=== PATIENT | female | born 1990 | race Two or more races ===

== ENCOUNTER 2020-04-27 08:58 | Emergency (ER) | payer MEDICAID ==
[~2020-04-27] VITALS: Ht 165.1 cm; Wt 68.0 kg
[2020-04-27] MEDS ORDERED: Acetaminophen 500mg (ES) tab ORAL ONE (09:15)
--- NOTE | 2020-04-27 09:15 | Emergency Room Report ---
History of Present Illness General Chief Complaint: Flu Like Symptoms Source: Patient Present Illness HPI Disclaimer: Please note that this report is being documented using [employer] technology. This can lead to erroneous entry secondary to incorrect interpretation by the dictating instrument. HPI: 30-year-old female presents for evaluation of fever, weakness, vomiting. Symptoms present approximately 1 week. She tested positive for COVID-19 on 04/25. She reports 1 week of intermittent fevers, sore throat, abdominal cramping, nausea, vomiting, diarrhea nonproductive cough. Took Tylenol 4 a.m. Denies dysuria, hematuria. LMP 1 month ago. Not currently taking antibiotics. PMH: Denied PSH: Denied Allergies: Denied Social Hx: Denied Allergies: Coded Allergies: No Known Allergies (Unverified , 04/27/20) COVID-19 Screening Contact w/high risk pt: No Experienced COVID-19 symptoms?: Yes COVID-19 Testing performed TEAR DOWN MAN: Yes COVID-19 Screening: Positive COVID-19 COVID-19 Testing Source: LAST WEEK Nursing Documentation-PMH Past Medical History: No Stated History Review of Systems All Other Systems: negative except mentioned in HPI Physical Exam Vital Signs Date Time Temp Pulse Resp B/P (MAP) Pulse Ox O2 Delivery O2 Flow Rate FiO2 04/27/20 09:08 100.2 98 22 127/98 (108) 100 Room Air General: Awake and alert, febrile, appears uncomfortable HEENT: NC/AT. EOMI. PERRLA. Uvula midline. 3+ tonsils bilaterally. Tonsils are edematous and erythematous but no exudate. Bilateral submandibular lymphadenopathy. Moist mucous membranes. Cardiovascular: Tachycardic. S1 and S2 normal. No murmur appreciated Resp: Normal work of breathing. Intermittent cough. No crackles, no wheezing. Abdomen: Abdomen is soft, nondistended. Mild tenderness diffusely but no guarding, no rebound, no no masses palpable Skin: Intact. No abrasions, laceration or rash over the exposed skin MSK: Normal tone and bulk. Moving all extremities. No obvious deformity. Neuro: Awake and alert. Mentating appropriately. Medical Decision Making Diagnostic Impression: Primary Impression: COVID-19 Additional Impression: Influenza-like symptoms ER Course Is a 30-year-old female diagnosed with COVID-19 2 days ago presenting with feve r, and broad flulike symptoms. Saturating 100% on room air arrives with slight fever. Treated with Tylenol. Receiving IV fluids. Labs are returned within normal limits. White count unremarkable. No infiltrates on chest x-ray. Patient saturating 100% on room air no respiratory distress. Experiencing symptoms from COVID-19 infection and will treat symptomatically with continued Tylenol and Zofran for nausea and vomiting. Follow-up with PMD. Quarantine precautions discussed as well as reasons to return to the ED. She understands and agrees with this treatment plan. Laboratory Tests Test 04/27/20 09:23 White Blood Count 10.1 K/UL (4.8-10.8) Red Blood Count 5.14 M/UL (4.20-5.40) Hemoglobin 15.2 G/DL (12.0-16.0) Hematocrit 42.3 % (37.0-47.0) Mean Corpuscular Volume 82 FL (80-99) Mean Corpuscular Hemoglobin 29.5 PG (27.0-31.0) Mean Corpuscular Hemoglobin Concent 35.9 G/DL (32.0-36.0) Red Cell Distribution Width 13.0 % (11.6-14.8) Platelet Count 371 K/UL (150-450) Mean Platelet Volume 6.6 FL (6.5-10.1) Neutrophils (%) (Auto) 68.0 % (45.0-75.0) Lymphocytes (%) (Auto) 26.2 % (20.0-45.0) Monocytes (%) (Auto) 5.1 % (1.0-10.0) Eosinophils (%) (Auto) 0.2 % (0.0-3.0) Basophils (%) (Auto) 0.4 % (0.0-2.0) Urine Color Pale yellow Urine Appearance Clear Urine pH 8 (4.5-8.0) Urine Specific [place] 1.010 (1.005-1.035) Urine Protein Negative (NEGATIVE) Urine Glucose (UA) Negative (NEGATIVE) Urine Ketones Negative (NEGATIVE) Urine Blood Negative (NEGATIVE) Urine Nitrite Negative (NEGATIVE) Urine Bilirubin Negative (NEGATIVE) Urine Urobilinogen Normal MG/DL (0.0-1.0) Urine Leukocyte Esterase Negative (NEGATIVE) Urine HCG, Qualitative Negative (NEGATIVE) Sodium Level 141 MMOL/L (136-145) Potassium Level 3.9 MMOL/L (3.5-5.1) Chloride Level 103 MMOL/L (98-107) Carbon Dioxide Level 30 MMOL/L (21-32) Anion Gap 8 mmol/L (5-15) Blood Urea Nitrogen 9 mg/dL (7-18) Creatinine 0.7 MG/DL (0.55-1.30) Estimated Glomerular Filtration Rate 19.3 mL/min (>60) Glucose Level 98 MG/DL (74-106) Calcium Level 9.2 MG/DL (8.5-10.1) Total Bilirubin 0.5 MG/DL (0.2-1.0) Aspartate Amino Transferase (AST) 17 U/L (15-37) Alanine Aminotransferase (ALT) 28 U/L (12-78) Alkaline Phosphatase 93 U/L (46-116) Total Protein 8.4 G/DL (6.4-8.2) H Albumin 4.0 G/DL (3.4-5.0) Globulin 4.4 g/dL Albumin/Globulin Ratio 0.9 (1.0-2.7) L Lipase 214 U/L (73-393) Chest X-Ray Diagnostic Results Chest X-Ray Diagnostic Results : Chest X-Ray Ordered: Yes # of Views/Limited/Complete: 1 View Indication: Shortness of Breath EP Interpretation: Yes Interpretation: no consolidation, no effusion, no pneumothorax, no acute cardiopulmonary disease Impression: No acute disease Electronically Signed by: Electronically signed by Dr. Arvind Jha MD Last Vital Signs Date Time Temp Pulse Resp B/P (MAP) Pulse Ox O2 Delivery O2 Flow Rate FiO2 04/27/20 09:08 100.2 98 22 127/98 (108) 100 Room Air Disposition: HOME, SELF-CARE Condition: Stable Scripts Ondansetron Odt* (ZOFRAN ODT*) 4 Mg Tab.rapdis 4 MG BC EVERY 6 HOURS PRN for Nausea & Vomiting, #10 TAB 0 Refills Prov: Arvind Jha MD 04/27/20 Arvind Jha MD Apr 27, 2020 09:15
[2020-04-27 09:30] VITALS: BP 131/91
--- NOTE | 2020-04-27 09:30 | NUR ---
ED Nurse Note: Pt walked in from home c/o cough, SOB, weakness x 2 days. Pt reports being positive for covid last week. Pt febrile @ 100.3. Pt reporting body aches and chills as well. O2 sat 100% on room air. Vitals stable as documented. A+Ox4. speaking in complete sentences.
[2020-04-27 10:06] LABS: BASOPHILS % (AUTO) 0.4 % (0.0-2.0); EOSINOPHILS % (AUTO) 0.2 % (0.0-3.0); HEMATOCRIT 42.3 % (37.0-47.0); HEMOGLOBIN 15.2 G/DL (12.0-16.0); LYMPHOCYTES % (AUTO) 26.2 % (20.0-45.0); MEAN CORPUSCULAR VOLUME 82 FL (80-99); MONOCYTES % (AUTO) 5.1 % (1.0-10.0); PLATELET COUNT 371 K/UL (150-450); RED BLOOD COUNT 5.14 M/UL (4.20-5.40); WHITE BLOOD COUNT 10.1 K/UL (4.8-10.8)
[2020-04-27 10:11] LABS: APPEARANCE,URINE CLEAR; BILIRUBIN, URINE NEGATIVE (NEGATIVE); COLOR,URINE PALE YELLOW; GLUCOSE, URINE (UA) NEGATIVE (NEGATIVE); KETONES,URINE NEGATIVE (NEGATIVE); LEUKOCYTE ESTERASE ,URINE NEGATIVE (NEGATIVE); NITRITE,URINE NEGATIVE (NEGATIVE); PH,URINE 8 (4.5-8.0); PROTEIN,URINE NEGATIVE (NEGATIVE); UROBILINOGEN,URINE NORMAL MG/DL (0.0-1.0)
[2020-04-27 10:15] LABS: CALCIUM 9.2 MG/DL (8.5-10.1); POTASSIUM 3.9 MMOL/L (3.5-5.1)
[2020-04-27 10:20] LABS: ALBUMIN/GLOBULIN RATIO 0.9 (1.0-2.7); BILIRUBIN,TOTAL 0.5 MG/DL (0.2-1.0)
[2020-04-27 10:25] LABS: CREATININE 0.7 MG/DL (0.55-1.30)
--- NOTE | 2020-04-27 10:25 | Diagnostic Imaging Report ---
Procedure: XRAY Chest 1v Reason for study: Chest pain Comparison films: None. FINDINGS: A single one view chest is obtained. Vascularity is normal. The lung harvey are clear bilaterally. Cardiac and mediastinal silhouette are within normal limits. CP angles are sharp. The bony thorax appear unremarkable. IMPRESSION: NO ACUTE CARDIOPULMONARY DISEASE.
[2020-04-27] MEDS ORDERED: ONDANSETRON ODT4 MG BC (10:46)
[2020-04-27 11:30] VITALS: BP 124/79
--- NOTE | 2020-04-27 11:30 | NUR ---
ER DISCHARGE NOTE: Patient is cleared to be discharged per ERMD, pt is aox4, on room air, with stable vital signs. pt was given dc and prescription instructions, pt was able to verbalize understanding, pt id band and iv site removed without complications. pt is able to ambulate with steady gait. pt took all belongings.
[2020-04-28] MEDS ORDERED: TYLENOL EXTRA500 MG ORAL (08:20)
[2020-04-28] MEDS ORDERED: ONDANSETRON ODT4 MG BC (08:20)
[2020-04-28] MEDS ORDERED: ATIVAN1 MG ORAL (08:26)
== END 2020-04-27 11:30 | disposition home or self-care (01) ==
LOC: EMR 09:13
DX: U07.1 COVID-19 (principal); R50.9 Fever, unspecified; R53.1 Weakness; R11.10 Vomiting, unspecified
CPT/HCPCS: 36415; 71045; 80053; 81003; 81025; 83690; 85025; 96361; 96374; J2405; J7030; Z7502; 99284

== ENCOUNTER 2020-04-28 07:09 | Emergency (ER) | payer MEDICAID ==
[~2020-04-28] VITALS: Ht 165.1 cm; Wt 72.6 kg
[~2020-04-28 07:09] MED LIST: ONDANSETRON ODT4 MG BC
--- NOTE | 2020-04-28 07:29 | Emergency Room Report ---
History of Present Illness General Chief Complaint: Vomiting, anxiety Source: Patient Present Illness HPI Disclaimer: Please note that this report is being documented using [employer] technology. This can lead to erroneous entry secondary to incorrect interpretation by the dictating instrument. HPI: 30-year-old female recently tested positive for COVID-19 returns for evaluation of persistent vomiting and anxiety. Patient tested positive for COVID-19 on 04/25. She reports 1 week of fever, sore throat, abdominal cramping, nausea, vomiting, vomiting, diarrhea nonproductive cough. Labs performed yesterday were unremarkable as was chest x-ray. Patient was treated s ymptomatically and discharged. She has been trying to take the Zofran that was prescribed to her however she was trying to swallow the oral dissolving tablets with water stating that she could not hold them down. Taking Tylenol but continues to experience abdominal cramping. Reported some blood-tinged emesis this morning. She presents today stating she is very anxious. She does not take anything for anxiety but is very concerned over a COVID-19 diagnosis. She states she needs something to help her calm down more than anything. PMH: Denied PSH: Denied Allergies: Denied Social Hx: Denied Allergies: Coded Allergies: No Known Allergies (Unverified , 04/27/20) COVID-19 Screening Contact w/high risk pt: No Experienced COVID-19 symptoms?: Yes Review of Systems All Other Systems: negative except mentioned in HPI Physical Exam Vital Signs Date Time Temp Pulse Resp B/P (MAP) Pulse Ox O2 Delivery O2 Flow Rate FiO2 04/28/20 07:28 98.4 120 20 100 Room Air 04/28/20 07:48 139/97 General: Awake and alert, anxious appearing HEENT: NC/AT. EOMI. Cardiovascular: Tachycardic. S1 and S2 normal. No murmur appreciated Resp: Normal work of breathing. No cough, wheezing or crackles appreciated Abdomen: Abdomen is soft, nondistended. Nontender Skin: Intact. No abrasions, laceration or rash over the exposed skin MSK: Normal tone and bulk. Moving all extremities. No obvious deformity. Neuro: Awake and alert. Mentating appropriately. Medical Decision Making Diagnostic Impression: Primary Impression: Anxiety Additional Impressions: COVID-19 Influenza-like symptoms ER Course 30-year-old female recently tested positive for COVID-19 returns complaining of persistent vomiting and anxiety. Arrives tachycardic but in no distress. Labs yesterday were within normal limits. Patient started on IV fluids, antiemetics and given anxiolytic. Repeat labs are within normal limits. Patient is having no difficulty breathing. Heart rate is now well controlled and the patient is feeling better. Instructed her how to properly use the ODT Zofran tablets. Discussed her anxieties and concerns over COVID-19 diagnosis. Stable for outpatient follow-up. Laboratory Tests Test 04/28/20 07:42 White Blood Count 12.4 K/UL (4.8-10.8) H Red Blood Count 5.06 M/UL (4.20-5.40) Hemoglobin 15.0 G/DL (12.0-16.0) Hematocrit 41.7 % (37.0-47.0) Mean Corpuscular Volume 82 FL (80-99) Mean Corpuscular Hemoglobin 29.6 PG (27.0-31.0) Mean Corpuscular Hemoglobin Concent 35.9 G/DL (32.0-36.0) Red Cell Distribution Width 12.8 % (11.6-14.8) Platelet Count 395 K/UL (150-450) Mean Platelet Volume 6.5 FL (6.5-10.1) Neutrophils (%) (Auto) 71.9 % (45.0-75.0) Lymphocytes (%) (Auto) 23.0 % (20.0-45.0) Monocytes (%) (Auto) 4.3 % (1.0-10.0) Eosinophils (%) (Auto) 0.2 % (0.0-3.0) Basophils (%) (Auto) 0.5 % (0.0-2.0) Prothrombin Time 11.0 SEC (9.30-11.50) Prothrombin Time INR 1.0 (0.9-1.1) Activated Partial Thromboplast Time 24 SEC (23-33) Sodium Level 139 MMOL/L (136-145) Potassium Level 3.6 MMOL/L (3.5-5.1) Chloride Level 104 MMOL/L (98-107) Carbon Dioxide Level 25 MMOL/L (21-32) Anion Gap 10 mmol/L (5-15) Blood Urea Nitrogen 8 mg/dL (7-18) Creatinine 0.7 MG/DL (0.55-1.30) Estimated Glomerular Filtration Rate > 60 mL/min (>60) Glucose Level 100 MG/DL (74-106) Calcium Level 9.5 MG/DL (8.5-10.1) Lipase 206 U/L (73-393) Disposition: HOME, SELF-CARE Condition: Improved Scripts Lorazepam* (ATIVAN*) 1 Mg Tablet 1 MG ORAL BEDTIME, #5 TAB Prov: Arvind Jha MD 04/28/20 Acetaminophen* (TYLENOL EXTRA STRENGTH*) 500 Mg Tablet 500 MG ORAL Q8H PRN for Prn Headache/Temp > 101, #30 TAB 0 Refills Prov: Arvind Jha MD 04/28/20 Ondansetron Odt* (ZOFRAN ODT*) 4 Mg Tab.rapdis 4 MG BC EVERY 6 HOURS PRN for Nausea & Vomiting, #10 TAB 0 Refills Prov: Arvind Jha MD 04/28/20 Referrals: NOT CHOSEN IPA/,REFERRING (PCP) Arvind Jha MD Apr 28, 2020 07:29
[2020-04-28] MEDS ORDERED: LORazepam Inj 2mg/ml 1ml IV ONE (07:30)
[2020-04-28 07:48] VITALS: BP 139/97
[2020-04-28 07:57] LABS: BASOPHILS % (AUTO) 0.5 % (0.0-2.0); EOSINOPHILS % (AUTO) 0.2 % (0.0-3.0); HEMATOCRIT 41.7 % (37.0-47.0); MEAN CORPUSCULAR VOLUME 82 FL (80-99); MONOCYTES % (AUTO) 4.3 % (1.0-10.0); NEUTROPHILS % (AUTO) 71.9 % (45.0-75.0); PLATELET COUNT 395 K/UL (150-450); RED BLOOD COUNT 5.06 M/UL (4.20-5.40); RED CELL DISTRIBUTION WIDTH 12.8 % (11.6-14.8); WHITE BLOOD COUNT 12.4 K/UL (4.8-10.8)
[2020-04-28 08:01] LABS: ANION GAP 10 mmol/L (5-15); BLOOD UREA NITROGEN 8 mg/dL (7-18); CALCIUM 9.5 MG/DL (8.5-10.1); CARBON DIOXIDE 25 MMOL/L (21-32); CHLORIDE 104 MMOL/L (98-107); CREATININE 0.7 MG/DL (0.55-1.30); POTASSIUM 3.6 MMOL/L (3.5-5.1); SODIUM 139 MMOL/L (136-145)
[2020-04-28] MEDS ORDERED: TYLENOL EXTRA500 MG ORAL (08:20)
[2020-04-28] MEDS ORDERED: ONDANSETRON ODT4 MG BC (08:20)
[2020-04-28] MEDS ORDERED: ATIVAN1 MG ORAL (08:26)
[2020-04-28 08:34] VITALS: BP 127/86
== END 2020-04-28 08:35 | disposition home or self-care (01) ==
LOC: EMR 07:26
DX: F41.9 Anxiety disorder, unspecified (principal); U07.1 COVID-19; J11.1 Influenza due to unidentified influenza virus with other respiratory manifestations
CPT/HCPCS: 36415; 80048; 83690; 85025; 85610; 85730; 96361; 96374; 96375; J2405; J7030; S0028; Z7502; 99284

== ENCOUNTER 2020-04-29 07:28 | Inpatient (IN) | payer MEDICAID ==
[~2020-04-29] VITALS: Ht 165.1 cm; Wt 72.6 kg
[~2020-04-29 07:28] MED LIST changes: +ATIVAN1 MG ORAL; +TYLENOL EXTRA500 MG ORAL
--- NOTE | 2020-04-29 07:49 | Emergency Room Report ---
History of Present Illness General Chief Complaint: Flu Like Symptoms Source: Patient Present Illness HPI This patient has been diagnosed with COVID-19 infection. She has been here at this emergency department being seen daily for the past 3 days. Since she has been diagnosed she has been very anxious and has had recurrent vomiting. She has had 2 full work-up to include chest x-ray and laboratory tests all of which were unremarkable. She has Zofran for home and benzodiazepines for anxiety. She returns for ongoing vomiting and anxiety. The patient states she is unable to function and cannot go home as she cannot keep any fluids down or the Zofran she was prescribed. Allergies: Coded Allergies: No Known Allergies (Unverified , 04/27/20) COVID-19 Screening Contact w/high risk pt: No Experienced COVID-19 symptoms?: Yes COVID-19 Testing performed HEEL BUILDER MACHINE: Yes COVID-19 Screening: Positive COVID-19 COVID-19 Testing Source: drive thru site Patient History Past Medical History: none Social History: Denies: smoking, alcohol use, drug use Last Menstrual Period: last month Now: No Reviewed Nursing Documentation: PMH: Agreed; PSxH: Agreed Nursing Documentation-PMH Past Medical History: No History, Except For Review of Systems All Other Systems: negative except mentioned in HPI Physical Exam Vital Signs Date Time Temp Pulse Resp B/P (MAP) Pulse Ox O2 Delivery O2 Flow Rate FiO2 04/29/20 07:31 98.6 112 22 132/79 (96) 96 Room Air Sp02 EP Interpretation: reviewed, normal General Appearance: no apparent distress, alert, GCS 15, non-toxic Head: normocephalic, atraumatic Eyes: bilateral eye normal inspection, bilateral eye PERRL ENT: hearing grossly normal, normal pharynx, no angioedema, normal voice Neck: full range of motion, supple/symm/no masses Respiratory: lungs clear, no respiratory distress, no retraction, no accessory muscle use, speaking full sentences Cardiovascular #1: no edema, tachycardia Gastrointestinal: normal bowel sounds, non tender, soft, non-distended, no guarding, no rebound Rectal: deferred Musculoskeletal: back normal, normal range of motion, gait/station normal, non- tender Neurologic: alert, motor strength/tone normal, oriented x3, sensory intact, responsive, speech normal Psychiatric: judgement/insight normal, memory normal, mood/affect normal, no suicidal/homicidal ideation, anxious Skin: no rash, normal color - Crying/upset/anxious Medical Decision Making Diagnostic Impression: Primary Impression: COVID-19 Additional Impressions: Anxiety Intractable vomiting ER Course This patient has known COVID-19. The patient has presented to the emergency department daily for the past 3 days. The patient states she feels that she cannot go on any further. She is incredibly anxious and unable to sleep. She also states that she has had recurrent vomiting. She is unable to function or even keep down her medications. She was given IV fluids, IV antiemetics and anxiolytics. The patient appears to be having a significant generalized anxiety episode. She denies any previous history of psychiatric illness or anxiety. She will be admitted for intractable vomiting and anxiety related to COVID-19. This patient was evaluated in the context of the global COVID-19 pandemic, which necessitated consideration that the patient might be at risk for infection with the AELO-UDUIS-3 virus that causes COVID-19. Institutional protocols and algorithms that pertain to the evaluation of patients at risk for COVID-19 and the state of rapid change based on information released by multiple regulatory bodies including the CDC and federal and state organizations. These policies and algorithms were followed during the patient's care in the ED. Laboratory Tests Test 04/29/20 07:03 04/29/20 09:02 Urine Color Pale yellow Urine Appearance Clear Urine pH 8 (4.5-8.0) Urine Specific [place] 1.010 (1.005-1.035) Urine Protein Negative (NEGATIVE) Urine Glucose (UA) Negative (NEGATIVE) Urine Ketones Negative (NEGATIVE) Urine Blood Negative (NEGATIVE) Urine Nitrite Negative (NEGATIVE) Urine Bilirubin Negative (NEGATIVE) Urine Urobilinogen Normal MG/DL (0.0-1.0) Urine Leukocyte Esterase Negative (NEGATIVE) Urine HCG, Qualitative Negative (NEGATIVE) Urine Opiates Screen Negative (NEGATIVE) Urine Barbiturates Screen Negative (NEGATIVE) Phencyclidine (PCP) Screen Negative (NEGATIVE) Urine Amphetamines Screen Negative (NEGATIVE) Urine Benzodiazepines Screen Negative (NEGATIVE) Urine Cocaine Screen Negative (NEGATIVE) Urine Marijuana (THC) Screen Negative (NEGATIVE) White Blood Count 15.4 K/UL (4.8-10.8) H Red Blood Count 4.85 M/UL (4.20-5.40) Hemoglobin 14.2 G/DL (12.0-16.0) Hematocrit 40.2 % (37.0-47.0) Mean Corpuscular Volume 83 FL (80-99) Mean Corpuscular Hemoglobin 29.3 PG (27.0-31.0) Mean Corpuscular Hemoglobin Concent 35.4 G/DL (32.0-36.0) Red Cell Distribution Width 13.1 % (11.6-14.8) Platelet Count 374 K/UL (150-450) Mean Platelet Volume 6.5 FL (6.5-10.1) Neutrophils (%) (Auto) 81.4 % (45.0-75.0) H Lymphocytes (%) (Auto) 14.8 % (20.0-45.0) L Monocytes (%) (Auto) 3.3 % (1.0-10.0) Eosinophils (%) (Auto) 0.1 % (0.0-3.0) Basophils (%) (Auto) 0.4 % (0.0-2.0) Sodium Level 138 MMOL/L (136-145) Potassium Level 3.9 MMOL/L (3.5-5.1) Chloride Level 103 MMOL/L (98-107) Carbon Dioxide Level 30 MMOL/L (21-32) Anion Gap 5 mmol/L (5-15) Blood Urea Nitrogen 8 mg/dL (7-18) Creatinine 0.6 MG/DL (0.55-1.30) Estimated Glomerular Filtration Rate > 60 mL/min (>60) Glucose Level 103 MG/DL (74-106) Calcium Level 9.1 MG/DL (8.5-10.1) Total Bilirubin 0.6 MG/DL (0.2-1.0) Aspartate Amino Transferase (AST) 20 U/L (15-37) Alanine Aminotransferase (ALT) 26 U/L (12-78) Alkaline Phosphatase 91 U/L (46-116) Total Creatine Kinase 42 U/L (26-308) Creatine Kinase MB < 0.5 NG/ML (0.0-3.6) Creatine Kinase MB Relative Index 1.1 Total Protein 8.2 G/DL (6.4-8.2) Albumin 4.1 G/DL (3.4-5.0) Globulin 4.1 g/dL Albumin/Globulin Ratio 1.0 (1.0-2.7) Chest X-Ray Diagnostic Results Chest X-Ray Diagnostic Results : Chest X-Ray Ordered: Yes # of Views/Limited/Complete: 1 View Indication: Other - Known COVID-19 infection EP Interpretation: Yes Interpretation: no consolidation, no effusion, no pneumothorax, no acute cardiopulmonary disease Impression: No acute disease Electronically Signed by: Faith Jones DO Last Vital Signs Date Time Temp Pulse Resp B/P (MAP) Pulse Ox O2 Delivery O2 Flow Rate FiO2 04/29/20 07:31 98.6 112 22 132/79 (96) 96 Room Air Status: improved Disposition: ADMITTED INPATIENT Condition: Stable Faith Jones DO Apr 29, 2020 07:49
[2020-04-29] MEDS ORDERED: Capsaicin 0.075% Cream TOPIC ONE (08:00)
[2020-04-29 08:11] VITALS: BP 130/80
[2020-04-29 08:52] LABS: APPEARANCE,URINE CLEAR; BILIRUBIN, URINE NEGATIVE (NEGATIVE); COLOR,URINE PALE YELLOW; GLUCOSE, URINE (UA) NEGATIVE (NEGATIVE); KETONES,URINE NEGATIVE (NEGATIVE); LEUKOCYTE ESTERASE ,URINE NEGATIVE (NEGATIVE); NITRITE,URINE NEGATIVE (NEGATIVE); PH,URINE 8 (4.5-8.0); PROTEIN,URINE NEGATIVE (NEGATIVE); UROBILINOGEN,URINE NORMAL MG/DL (0.0-1.0)
[2020-04-29] MEDS ORDERED: ALPRAZolam 0.5mg tab ORAL ONE (09:00)
[2020-04-29 09:34] LABS: BASOPHILS % (AUTO) 0.4 % (0.0-2.0); EOSINOPHILS % (AUTO) 0.1 % (0.0-3.0); HEMATOCRIT 40.2 % (37.0-47.0); HEMOGLOBIN 14.2 G/DL (12.0-16.0); LYMPHOCYTES % (AUTO) 14.8 % (20.0-45.0); MEAN CORPUSCULAR VOLUME 83 FL (80-99); MONOCYTES % (AUTO) 3.3 % (1.0-10.0); NEUTROPHILS % (AUTO) 81.4 % (45.0-75.0); PLATELET COUNT 374 K/UL (150-450); RED BLOOD COUNT 4.85 M/UL (4.20-5.40); RED CELL DISTRIBUTION WIDTH 13.1 % (11.6-14.8); WHITE BLOOD COUNT 15.4 K/UL (4.8-10.8)
[2020-04-29 09:37] LABS: ANION GAP 5 mmol/L (5-15); BLOOD UREA NITROGEN 8 mg/dL (7-18); CALCIUM 9.1 MG/DL (8.5-10.1); CARBON DIOXIDE 30 MMOL/L (21-32); CHLORIDE 103 MMOL/L (98-107); CREATININE 0.6 MG/DL (0.55-1.30); POTASSIUM 3.9 MMOL/L (3.5-5.1); SODIUM 138 MMOL/L (136-145)
--- NOTE | 2020-04-29 09:45 | Diagnostic Imaging Report ---
Indication: Shortness of breath Technique: XRAY Chest 1v Comparison: 04/27/2020 Findings: Heart size and mediastinal contours are within normal limits for AP technique. There is no focal airspace consolidation, pneumothorax or pleural effusion. Osseous structures demonstrate no acute abnormality. Impression: No radiographic evidence of acute cardiopulmonary disease. No significant interval change compared to prior exam.
[2020-04-29 09:51] LABS: ALANINE AMINOTRANSFERASE 26 U/L (12-78); ALBUMIN 4.1 G/DL (3.4-5.0); ALKALINE PHOSPHATASE 91 U/L (46-116); ASPARTATE AMINO TRANSFERASE 20 U/L (15-37); BILIRUBIN,TOTAL 0.6 MG/DL (0.2-1.0); CKMB < 0.5 NG/ML (0.0-3.6); CREATINE KINASE 42 U/L (26-308)
[2020-04-29] MEDS ORDERED: LORazepam Inj 2mg/ml 1ml IV ONE (10:00)
--- NOTE | 2020-04-29 11:00 | Consultation ---
DATE OF CONSULTATION: 04/29/2020 INFECTIOUS DISEASE CONSULTATION CONSULTING PHYSICIAN: Jerzy Yousif MD. REFERRING PHYSICIAN: David Terrell DO. REASON FOR CONSULTATION: COVID-19 pneumonia. HISTORY OF PRESENTING ILLNESS: This is a 30-year-old lady with history of anxiety, who comes in with fever, chills along with shortness of breath and chest pain. She was found to have COVID-19 pneumonia and an Infectious Diseases consultation has been obtained for antibiotics. PAST MEDICAL HISTORY: History of anxiety. SOCIAL HISTORY: She does not smoke, drink, or use drugs. FAMILY HISTORY: Noncontributory. REVIEW OF SYSTEMS: RESPIRATORY: She has fever and chills. No cough. She has shortness of breath. She does have chest pain. CARDIAC: She does have chest pain. No palpitations. No dizziness. No syncope. GASTROINTESTINAL: She has nausea and vomiting. No abdominal pain. She has diarrhea. She has loss of taste. MUSCULOSKELETAL: She has headaches and body pain. MEDICATIONS: She has received lorazepam, ibuprofen, Tylenol, Xanax, and Zofran in the ER. ALLERGIES: No known drug allergies. PHYSICAL EXAMINATION: VITAL SIGNS: Temperature 98.6, T-max of 98.6, pulse of 105, respiratory rate 22, blood pressure 130/80. O2 saturation of 96% on room air. Examination is deferred due to COVID-19. LABORATORY DATA: White count 15.4, hemoglobin 14.2, hematocrit 40.2, MCV 83, platelet count 374,000 with neutrophils of 81%. Sodium 138, potassium 3.9, chloride 103, bicarb 30, BUN 8, creatinine 0.6. Glucose 103. Calcium 9.1. Total bilirubin 0.6, AST 20, ALT 26, alkaline phosphatase 91. CK of 42, CK-MB less than 0.5. Total protein 8.2, albumin 4.1. UA is showing LE negative. Beta HCG, negative. Chest x-ray is showing no acute disease. ASSESSMENT: This is a 30-year-old lady with history of anxiety, who comes in with fever, chills, shortness of breath, nausea, vomiting, diarrhea, and found to have, 1. COVID-19 pneumonia. She is on room air with O2 saturation of 96%. Chest x-ray, no signs of pneumonia. 2. History of anxiety. PLAN: 1. Continue off antibiotics. 2. Continue fluids. 3. Continue isolation. 4. We will follow the patient clinically. I would like to thank Dr. David Terrell for this consultation. Suhasuntala Paramjit Yousif DR: EDDIE JOB#: [id number] CC:
[2020-04-29] MEDS ORDERED: Morphine Sulfate 2mg/ml Inj(IV/IM USE ONLY) IVP PRN (15:15)
[2020-04-29] MEDS ORDERED: Albuterol/Ipratropium 3ml neb HHN PRN (15:15)
[2020-04-29] MEDS: D5 1/2NS 1,000 ML IV SCH (15:30)
[2020-04-29 16:00] VITALS: BP 117/73
--- NOTE | 2020-04-29 17:36 | Consultation ---
Consult Note Consult Note CONSULTING PHYSICIAN: Jadon Madison MD. REFERRING PHYSICIAN: David Terrell DO. REASON FOR CONSULTATION: COVID-19 pneumonia. HISTORY OF PRESENTING ILLNESS: This is a 30-year-old female with history of anxiety, who comes in with fever, chills along with shortness of breath and chest pain. She was found to have COVID-19 pneumonia and an Pulmonary consultation has been obtained for antibiotics and optimal oxygenation. She has presented x 3 days in a row to ER PAST MEDICAL HISTORY: History of anxiety. SOCIAL HISTORY: She does not smoke, drink, or use drugs. FAMILY HISTORY: Noncontributory. REVIEW OF SYSTEMS: RESPIRATORY: She has fever and chills. No cough. She has shortness of breath. She does have chest pain. CARDIAC: She does have chest pain. No palpitations. No dizziness. No syncope. GASTROINTESTINAL: She has nausea and vomiting. No abdominal pain. She has diarrhea. She has loss of taste. MUSCULOSKELETAL: She has headaches and body pain. MEDICATIONS: She has received lorazepam, ibuprofen, Tylenol, Xanax, and Zofran in the ER. ALLERGIES: No known drug allergies. PHYSICAL EXAMINATION: VITAL SIGNS: Temperature 98.6, T-max of 98.6, pulse of 105, respiratory rate 22, blood pressure 130/80. O2 saturation of 96% on room air. General appearance: alert, cooperative, no distress, appears stated age Head: Normocephalic, without obvious abnormality, atraumatic Eyes: conjunctivae/corneas clear. PERRL, EOM's intact. Fundi benign Throat: Lips, mucosa, and tongue normal. Teeth and gums normal Neck: supple, symmetrical, trachea midline, no adenopathy, thyroid: not enlarged, symmetric, no tenderness/mass/nodules, no carotid bruit and no JVD Lungs: clear to auscultation bilaterally Heart: regular rate and rhythm, S1, S2 normal, no murmur, click, rub or gallop Abdomen: soft, non-tender. Bowel sounds normal. No masses, no organomegaly Extremities: extremities normal, atraumatic, no cyanosis or edema Pulses: 2+ and symmetric Skin: Skin color, texture, turgor normal. No rashes or lesions Neurologic: Grossly normal LABORATORY DATA: White count 15.4, hemoglobin 14.2, hematocrit 40.2, MCV 83, platelet count 374,000 with neutrophils of 81%. Sodium 138, potassium 3.9, chloride 103, bicarb 30, BUN 8, creatinine 0.6. Glucose 103. Calcium 9.1. Total bilirubin 0.6, AST 20, ALT 26, alkaline phosphatase 91. CK of 42, CK-MB less than 0.5. Total protein 8.2, albumin 4.1. UA is showing LE negative. Beta HCG, negative. Chest x-ray is clear. ASSESSMENT: This is a 30-year-old female with history of anxiety, who comes in with fever, chills, shortness of breath, nausea, vomiting, diarrhea, and found to have, 1. COVID-19 pneumonia. She is on room air with O2 saturation of 96%. Chest x-ray, no signs of pneumonia. 2. History of anxiety. PLAN: 1. Continue off antibiotics. 2. Continue fluids. 3. Continue isolation. 4. I will follow the patient clinically. Jadon Madison M.D. Jadon Madison MD Apr 29, 2020 17:36
[2020-04-29 20:00] VITALS: BP 120/77
[2020-04-29] MEDS: Heparin 5000 units/ml inj SUBQ SCH (20:31)
--- NOTE | 2020-04-29 23:01 | Psychiatry Consultation ---
Psychiatry Consultation Psychiatry Consultation Chief Complaint: Flu Like Symptoms Allergies: Coded Allergies: No Known Allergies (Unverified , 04/27/20) Medication History Scheduled Lorazepam* (Ativan*), 1 MG ORAL BEDTIME Scheduled PRN Acetaminophen* (Tylenol Extra Strength*), 500 MG ORAL Q8H PRN for Prn Headache/Temp > 101 Ondansetron Odt* (Zofran Odt*), 4 MG BC EVERY 6 HOURS PRN for Nausea & Vomiting Objective Data Height (Feet): 5 Height (Inches): 5.00 Weight (Pounds): 160 Shannan Felton MD Apr 29, 2020 23:01
[2020-04-30] VITALS: BP 100/62
[2020-04-30 04:00] VITALS: BP 121/65
[2020-04-30 05:39] LABS: BASOPHILS % (AUTO) 1.1 % (0.0-2.0); EOSINOPHILS % (AUTO) 1.9 % (0.0-3.0); HEMATOCRIT 36.4 % (37.0-47.0); HEMOGLOBIN 13.2 G/DL (12.0-16.0); LYMPHOCYTES % (AUTO) 41.9 % (20.0-45.0); MEAN CORPUSCULAR VOLUME 83 FL (80-99); MONOCYTES % (AUTO) 7.4 % (1.0-10.0); NEUTROPHILS % (AUTO) 47.7 % (45.0-75.0); PLATELET COUNT 360 K/UL (150-450); RED CELL DISTRIBUTION WIDTH 13.6 % (11.6-14.8); WHITE BLOOD COUNT 3.8 K/UL (4.8-10.8)
[2020-04-30] MEDS: D5 1/2NS 1,000 ML IV SCH (06:18)
[2020-04-30 07:17] LABS: ANION GAP 7 mmol/L (5-15); BLOOD UREA NITROGEN 7 mg/dL (7-18); CALCIUM 8.3 MG/DL (8.5-10.1); CARBON DIOXIDE 29 MMOL/L (21-32); CHLORIDE 105 MMOL/L (98-107); CREATININE 0.6 MG/DL (0.55-1.30); POTASSIUM 3.5 MMOL/L (3.5-5.1); SODIUM 141 MMOL/L (136-145)
[2020-04-30 08:00] VITALS: BP 124/61
[2020-04-30] MEDS: Heparin 5000 units/ml inj SUBQ SCH ×2 (09:33→21:00)
--- NOTE | 2020-04-30 09:53 | General Progress Note ---
Subjective ROS Limited/Unobtainable: Yes Allergies: Coded Allergies: No Known Allergies (Unverified , 04/27/20) Objective Last 24 Hour Vital Signs Date Time Temp Pulse Resp B/P (MAP) Pulse Ox O2 Delivery O2 Flow Rate FiO2 04/30/20 04:00 97.6 69 18 121/65 (83) 100 04/30/20 00:00 97.3 64 17 100/62 (75) 97 04/29/20 21:00 Room Air 04/29/20 20:00 97.7 70 16 120/77 (91) 99 04/29/20 16:00 98.2 64 20 117/73 (88) 99 04/29/20 14:39 Room Air 04/29/20 13:26 98.6 100 16 104/78 96 Room Air 04/29/20 10:55 99 18 120/80 95 04/29/20 10:52 98.6 04/29/20 10:22 105 22 130/80 96 Intake and Output0 04/29/20 04/30/20 19:00 07:00 Intake Total 60 ml 540 ml Balance 60 ml 540 ml Intake IV Total 60 ml 240 ml Other 300 ml # Voids 2 2 Laboratory Tests 04/29/20 10:15: Lactic Acid Level 0.90 04/30/20 03:00: White Blood Count 3.8#L, Red Blood Count 4.40, Hemoglobin 13.2, Hematocrit 36.4L , Mean Corpuscular Volume 83, Mean Corpuscular Hemoglobin 30.0, Mean Corpuscular Hemoglobin Concent 36.3H, Red Cell Distribution Width 13.6, Platelet Count 360, Mean Platelet Volume 6.4L, Neutrophils (%) (Auto) 47.7, Lymphocytes (%) (Auto) 41.9, Monocytes (%) (Auto) 7.4, Eosinophils (%) (Auto) 1.9, Basophils (%) (Auto) 1.1, Sodium Level 141, Potassium Level 3.5, Chloride Level 105, Carbon Dioxide Level 29, Anion Gap 7, Blood Urea Nitrogen 7, Creatinine 0.6, Estimat Glomerular Filtration Rate > 60, Glucose Level 82, Calcium Level 8.3L Height (Feet): 5 Height (Inches): 5.00 Weight (Pounds): 160 General Appearance: alert EENT: normal ENT inspection Neck: supple Cardiovascular: normal rate Respiratory/Chest: decreased breath sounds Abdomen: normal bowel sounds, non tender, soft Extremities: non-tender Assessment/Plan Problem List: (1) Anxiety ICD Codes: F41.9 - Anxiety disorder, unspecified SNOMED: 92406841 (2) Intractable vomiting ICD Codes: R11.10 - Vomiting, unspecified SNOMED: 688196207 (3) COVID-19 ICD Codes: U07.1 - COVID-19 SNOMED: 750433713 Assessment/Plan: on zofran add reglan advance diet Tesfaye Carbone MD Apr 30, 2020 09:53
[2020-04-30] MEDS ORDERED: Metoclopramide 10mg/2ml Inj IVP PRN (10:00)
[2020-04-30] MEDS ORDERED: LORazepam 1mg tab ORAL SCH (11:00)
[2020-04-30 12:00] VITALS: BP 116/65
--- NOTE | 2020-04-30 12:40 | Infectious Diseases Prog Note ---
Assessment/Plan Assessment/Plan A; 1. COVID-19 pneumonia. 2. History of anxiety. 3. Vomiting, resolved PLAN: 1. Continue off antibiotics. 2. Continue fluids. 3. Continue isolation. 4. We will follow the patient clinically. Subjective ROS Limited/Unobtainable: No Constitutional: Reports: no symptoms HEENT: Reports: no symptoms Cardiovascular: Reports: no symptoms Gastrointestinal/Abdominal: Reports: no symptoms Genitourinary: Reports: no symptoms Allergies: Coded Allergies: No Known Allergies (Unverified , 04/27/20) Objective Last 24 Hour Vital Signs Date Time Temp Pulse Resp B/P (MAP) Pulse Ox O2 Delivery O2 Flow Rate FiO2 04/30/20 11:36 69 18 121/65 100 04/30/20 11:06 69 18 121/65 100 04/30/20 04:00 97.6 69 18 121/65 (83) 100 04/30/20 00:00 97.3 64 17 100/62 (75) 97 04/29/20 21:00 Room Air 04/29/20 20:00 97.7 70 16 120/77 (91) 99 04/29/20 16:00 98.2 64 20 117/73 (88) 99 04/29/20 14:39 Room Air 04/29/20 13:26 98.6 100 16 104/78 96 Room Air Height (Feet): 5 Height (Inches): 5.00 Weight (Pounds): 160 General Appearance: no acute distress HEENT: mucous membranes moist Respiratory/Chest: lungs clear Cardiovascular: normal rate Abdomen: soft, non tender Extremities: no edema Neurologic/Psychiatric: alert, oriented x 3, responsive Laboratory Tests Test 04/30/20 03:00 White Blood Count 3.8 K/UL (4.8-10.8) #L Red Blood Count 4.40 M/UL (4.20-5.40) Hemoglobin 13.2 G/DL (12.0-16.0) Hematocrit 36.4 % (37.0-47.0) L Mean Corpuscular Volume 83 FL (80-99) Mean Corpuscular Hemoglobin 30.0 PG (27.0-31.0) Mean Corpuscular Hemoglobin Concent 36.3 G/DL (32.0-36.0) H Red Cell Distribution Width 13.6 % (11.6-14.8) Platelet Count 360 K/UL (150-450) Mean Platelet Volume 6.4 FL (6.5-10.1) L Neutrophils (%) (Auto) 47.7 % (45.0-75.0) Lymphocytes (%) (Auto) 41.9 % (20.0-45.0) Monocytes (%) (Auto) 7.4 % (1.0-10.0) Eosinophils (%) (Auto) 1.9 % (0.0-3.0) Basophils (%) (Auto) 1.1 % (0.0-2.0) Sodium Level 141 MMOL/L (136-145) Potassium Level 3.5 MMOL/L (3.5-5.1) Chloride Level 105 MMOL/L (98-107) Carbon Dioxide Level 29 MMOL/L (21-32) Anion Gap 7 mmol/L (5-15) Blood Urea Nitrogen 7 mg/dL (7-18) Creatinine 0.6 MG/DL (0.55-1.30) Estimat Glomerular Filtration Rate > 60 mL/min (>60) Glucose Level 82 MG/DL (74-106) Calcium Level 8.3 MG/DL (8.5-10.1) L Current Medications Medications (Trade) Dose Ordered Sig/Nandini Route PRN Reason Start Time Stop Time Status Last Admin Dose Admin Acetaminophen (Tylenol) 650 mg Q6H PRN ORAL Pain Scale (3-5) 04/29/20 15:15 05/29/20 15:14 04/30/20 09:34 Acetaminophen (Tylenol) 650 mg Q6H PRN ORAL Temp >100.5 04/29/20 15:15 05/29/20 15:14 Albuterol/ Ipratropium (Combivent Respimat) 1 puff Q6H PRN INH Shortness of Breath 04/29/20 15:30 05/29/20 15:29 Dextrose/Sodium Chloride 1,000 ml @ 60 mls/hr [id number] IV 04/29/20 15:15 05/29/20 15:14 04/30/20 06:18 Heparin Sodium (Porcine) (Heparin 5000 units/ml) 5,000 units EVERY 12 HOURS SUBQ 04/29/20 21:00 06/13/20 20:59 04/30/20 09:33 Metoclopramide HCl (Reglan) 10 mg Q6H PRN IVP Nausea & Vomiting 04/30/20 10:00 05/30/20 09:59 Mirtazapine (Remeron) 15 mg BEDTIME ORAL 04/29/20 21:00 07/28/20 20:59 04/29/20 20:30 Morphine Sulfate (Morphine Sulfate) 2 mg Q4H PRN IVP Severe Pain (Pain Scale 7-10) 04/29/20 15:15 05/06/20 15:14 Ondansetron HCl (Zofran) 4 mg Q4H PRN IVP Nausea & Vomiting 04/29/20 15:15 05/29/20 15:14 04/30/20 09:33 Kb Hi MD Apr 30, 2020 12:40
--- NOTE | 2020-04-30 12:43 | Pulmonology Progress Note ---
Subjective ROS Limited/Unobtainable: No Constitutional: Reports: no symptoms; Denies: fever, chills HEENT: Repors: no symptoms Respiratory: Denies: dry cough, shortness of breath, wheezing Cardiovascular: Reports: no symptoms Gastrointestinal/Abdominal: Reports: no symptoms, vomiting - improving; Denies: diarrhea, blood in stool Genitourinary: Reports: no symptoms Allergies: Coded Allergies: No Known Allergies (Unverified , 04/27/20) Subjective pt is anxious about her intractable vomiting and covid-19 status. pt reports her family members are sick with COVID-19. Objective Last 24 Hour Vital Signs Date Time Temp Pulse Resp B/P (MAP) Pulse Ox O2 Delivery O2 Flow Rate FiO2 04/30/20 11:36 69 18 121/65 100 04/30/20 11:06 69 18 121/65 100 04/30/20 04:00 97.6 69 18 121/65 (83) 100 04/30/20 00:00 97.3 64 17 100/62 (75) 97 04/29/20 21:00 Room Air 04/29/20 20:00 97.7 70 16 120/77 (91) 99 04/29/20 16:00 98.2 64 20 117/73 (88) 99 04/29/20 14:39 Room Air 04/29/20 13:26 98.6 100 16 104/78 96 Room Air Intake and Output 04/29/20 04/30/20 19:00 07:00 Intake Total 60 ml 540 ml Balance 60 ml 540 ml Intake IV Total 60 ml 240 ml Other 300 ml # Voids 2 2 Objective 04/30/2020 saturating well on RA; s/p Ativan; NAD General Appearance: WD/WN, no acute distress HEENT: normocephalic, atraumatic Respiratory: chest wall non-tender, lungs clear, normal breath sounds Cardiovascular: normal rate, regular rhythm, no gallop/murmur, no JVD Abdomen: normal bowel sounds, soft, non tender Skin: no rash Neurologic: alert, oriented x 3 Laboratory Tests 04/30/20 03:00: White Blood Count 3.8#L, Red Blood Count 4.40, Hemoglobin 13.2, Hematocrit 36.4L , Mean Corpuscular Volume 83, Mean Corpuscular Hemoglobin 30.0, Mean Corpuscular Hemoglobin Concent 36.3H, Red Cell Distribution Width 13.6, Platelet Count 360, Mean Platelet Volume 6.4L, Neutrophils (%) (Auto) 47.7, Lymphocytes (%) (Auto) 41.9, Monocytes (%) (Auto) 7.4, Eosinophils (%) (Auto) 1.9, Basophils (%) (Auto) 1.1, Sodium Level 141, Potassium Level 3.5, Chloride Level 105, Carbon Dioxide Level 29, Anion Gap 7, Blood Urea Nitrogen 7, Creatinine 0.6, Estimat Glomerular Filtration Rate > 60, Glucose Level 82, Calcium Level 8.3L Current Medications Medications (Trade) Dose Ordered Sig/Nandini Route PRN Reason Start Time Stop Time Status Last Admin Dose Admin Acetaminophen (Tylenol) 650 mg Q6H PRN ORAL Pain Scale (3-5) 04/29/20 15:15 05/29/20 15:14 04/30/20 09:34 Acetaminophen (Tylenol) 650 mg Q6H PRN ORAL Temp >100.5 04/29/20 15:15 05/29/20 15:14 Albuterol/ Ipratropium (Combivent Respimat) 1 puff Q6H PRN INH Shortness of Breath 04/29/20 15:30 05/29/20 15:29 Dextrose/Sodium Chloride 1,000 ml @ 60 mls/hr [id number] IV 04/29/20 15:15 05/29/20 15:14 04/30/20 06:18 Heparin Sodium (Porcine) (Heparin 5000 units/ml) 5,000 units EVERY 12 HOURS SUBQ 04/29/20 21:00 06/13/20 20:59 04/30/20 09:33 Metoclopramide HCl (Reglan) 10 mg Q6H PRN IVP Nausea & Vomiting 04/30/20 10:00 05/30/20 09:59 Mirtazapine (Remeron) 15 mg BEDTIME ORAL 04/29/20 21:00 07/28/20 20:59 04/29/20 20:30 Morphine Sulfate (Morphine Sulfate) 2 mg Q4H PRN IVP Severe Pain (Pain Scale 7-10) 04/29/20 15:15 05/06/20 15:14 Ondansetron HCl (Zofran) 4 mg Q4H PRN IVP Nausea & Vomiting 04/29/20 15:15 05/29/20 15:14 04/30/20 09:33 Assessment/Plan Assessment/Plan 1. COVID-19 pneumonia. - pt on room air with O2 saturation of 96%. - Chest x-ray, no signs of pneumonia. - Continue fluids. - Continue isolation. - Continue off antibiotics. - 04/29/2020 COVID-19 test result pending 2. History of anxiety. - Ativan given per Dr. Felton 3. Nausea/vomiting - Vomiting improved per patient - on Zofran and Reglan per general MD We will follow the patient clinically The care of this patient was discussed with my supervising physician Time spent for this encounter was approximately 31 minutes Jd Radford Apr 30, 2020 12:43 Jadon Madison MD Apr 30, 2020 18:03
--- NOTE | 2020-04-30 14:45 | History and Physical Report ---
DATE OF ADMISSION: 04/29/2020 DATE AND TIME SEEN: 04/30/2020 approximate time is 1 p.m. CONSULTANTS: 1. Jadon Madison MD 2. Tesfaye Abbott MD 3. Shannan Felton MD 4. Jerzy Yousif MD CHIEF COMPLAINT: Vomiting, anxiety, short of breath, COVID infection. BRIEF HISTORY: This is a 30-year-old female, who lives at home, presents with two-day increased shortness of breath, coughing, slight vomiting was very anxious, came to [place], diagnosed with COVID infection, admitted to medical floor. Currently, calm in bed, slightly tired. No complaint. REVIEW OF SYSTEMS: No chest pain. Slight short of breath. No nausea, vomiting, or diarrhea. PAST MEDICAL HISTORY: Anxiety. PAST SURGICAL HISTORY: Unknown. MEDICATIONS: Include lorazepam, Reglan, heparin, mirtazapine, albuterol, Tylenol, Zofran, morphine, dextrose. ALLERGIES: Denies. SOCIAL HISTORY: No smoking. No alcohol. No intravenous drug abuse. FAMILY HISTORY: Noncontributory. PHYSICAL EXAMINATION: GENERAL: Slightly anxious in bed, oriented x2, in no acute distress. VITAL SIGNS: Temperature is 98 degrees, pulse 78, respirations 18, blood pressure 116/62. HEENT: Normocephalic, atraumatic. NECK: Trachea is midline. CARDIOVASCULAR: No peripheral edema. LUNGS: . Slight short of breath. ABDOMEN: No apparent wounds. EXTREMITIES: No cyanosis, clubbing, or edema. NEUROLOGIC: Patient moves all extremities, slightly weak. LABORATORY AND DIAGNOSTIC DATA: Labs at this time show white count 3.8, hemoglobin/hematocrit 13/36, platelets 360. BMP - calcium 8.3, otherwise normal. Urinalysis is negative. Urine tox is negative. ASSESSMENT: 1. COVID infection. 2. Vomiting. 3. Anxiety. 4. Shortness of breath. PLAN: 1. O2 and pulmonary treatment. 2. Antibiotics per Infectious Disease. 3. Antiemetics p.r.n. 4. Dietary followup. 5. CBC, BMP in the morning. David Terrell D.O. DR: KVNG JOB#: [id number] CC:
[2020-04-30 16:00] VITALS: BP 122/63
[2020-04-30 20:00] VITALS: BP 114/72
[2020-05-01] VITALS: BP 101/64
[2020-05-01] MEDS: D5 1/2NS 1,000 ML IV SCH (01:54)
[2020-05-01 04:00] VITALS: BP 117/79
[2020-05-01 05:52] LABS: ANION GAP 6 mmol/L (5-15); BLOOD UREA NITROGEN 5 mg/dL (7-18); CALCIUM 8.6 MG/DL (8.5-10.1); CARBON DIOXIDE 29 MMOL/L (21-32); CHLORIDE 105 MMOL/L (98-107); CREATININE 0.5 MG/DL (0.55-1.30); POTASSIUM 3.4 MMOL/L (3.5-5.1); SODIUM 140 MMOL/L (136-145)
[2020-05-01 06:21] LABS: BASOPHILS % (AUTO) 0.7 % (0.0-2.0); EOSINOPHILS % (AUTO) 2.1 % (0.0-3.0); HEMATOCRIT 37.3 % (37.0-47.0); HEMOGLOBIN 13.1 G/DL (12.0-16.0); LYMPHOCYTES % (AUTO) 31.7 % (20.0-45.0); MEAN CORPUSCULAR VOLUME 85 FL (80-99); MONOCYTES % (AUTO) 7.1 % (1.0-10.0); NEUTROPHILS % (AUTO) 58.4 % (45.0-75.0); PLATELET COUNT 333 K/UL (150-450); RED BLOOD COUNT 4.39 M/UL (4.20-5.40)
[2020-05-01 08:00] VITALS: BP 116/67
[2020-05-01] MEDS: Heparin 5000 units/ml inj SUBQ SCH (08:27)
--- NOTE | 2020-05-01 09:05 | General Progress Note ---
Subjective Constitutional: Reports: weakness Allergies: Coded Allergies: No Known Allergies (Unverified , 04/27/20) All Systems: reviewed and negative except above Subjective calm in bed Objective Last 24 Hour Vital Signs Date Time Temp Pulse Resp B/P (MAP) Pulse Ox O2 Delivery O2 Flow Rate FiO2 05/01/20 08:00 97.9 80 18 116/67 (83) 98 05/01/20 04:00 97.5 77 18 117/79 (92) 95 05/01/20 00:00 98.2 68 16 101/64 (76) 94 04/30/20 21:00 Room Air 04/30/20 20:00 98.3 83 16 114/72 (86) 94 04/30/20 16:00 98.2 68 17 122/63 (82) 99 04/30/20 12:00 98.4 70 18 116/65 (82) 100 04/30/20 11:36 69 18 121/65 100 04/30/20 11:06 69 18 121/65 100 Intake and Output 04/30/20 05/01/20 19:00 07:00 Intake Total 310 ml 1020 ml Balance 310 ml 1020 ml Intake IV Total 60 ml 660 ml Other 250 ml 360 ml # Voids 3 3 # Bowel Movements 2 Laboratory Tests 05/01/20 04:35: White Blood Count 9.0#, Red Blood Count 4.39, Hemoglobin 13.1, Hematocrit 37.3, Mean Corpuscular Volume 85, Mean Corpuscular Hemoglobin 29.9, Mean Corpuscular Hemoglobin Concent 35.2, Red Cell Distribution Width 13.0, Platelet Count 333, Mean Platelet Volume 6.2L, Neutrophils (%) (Auto) 58.4, Lymphocytes (%) (Auto) 31.7, Monocytes (%) (Auto) 7.1, Eosinophils (%) (Auto) 2.1, Basophils (%) (Auto) 0.7, Sodium Level 140, Potassium Level 3.4L, Chloride Level 105, Carbon Dioxide Level 29, Anion Gap 6, Blood Urea Nitrogen 5L, Creatinine 0.5L, Estimat Glomerular Filtration Rate > 60, Glucose Level 89, Calcium Level 8.6 Height (Feet): 5 Height (Inches): 5.00 Weight (Pounds): 160 General Appearance: alert EENT: normal ENT inspection Neck: normal alignment Cardiovascular: normal peripheral pulses, normal rate, regular rhythm Respiratory/Chest: chest wall non-tender, lungs clear, normal breath sounds Abdomen: normal bowel sounds, non tender, soft Extremities: normal inspection Edema: no edema noted Arm (L), no edema noted Arm (R), no edema noted Leg (L), no edema noted Leg (R), no edema noted Pedal (L), no edema noted Pedal (R), no edema noted Generalized Neurologic: responsive, motor weakness Skin: normal pigmentation, warm/dry Assessment/Plan Problem List: (1) Influenza-like symptoms ICD Codes: R68.89 - Other general symptoms and signs SNOMED: 059172398 (2) Anxiety ICD Codes: F41.9 - Anxiety disorder, unspecified SNOMED: 24348392 (3) COVID-19 ICD Codes: U07.1 - COVID-19 SNOMED: 860562983 (4) Intractable vomiting ICD Codes: R11.10 - Vomiting, unspecified SNOMED: 634750635 Status: stable, progressing Assessment/Plan: o2 pulm tx abx prn gi f/u cbc bmp am dc plan David Terrell DO May 01, 2020 09:05
--- NOTE | 2020-05-01 11:25 | Infectious Diseases Prog Note ---
Assessment/Plan Assessment/Plan antibiotics : none A 1. COVID 19 pneumonia on room air, 100 % saturation 2. leucocytosis improving 3. anxiety P 1. continue off antibiotics 2. continue isolation 3. okay for discharger from ID perspective Subjective Constitutional: Denies: fever, chills - less Respiratory: Reports: shortness of breath, dry cough - less Gastrointestinal/Abdominal: Reports: diarrhea; Denies: nausea, vomiting Neurologic: Reports: headache Allergies: Coded Allergies: No Known Allergies (Unverified , 04/27/20) Objective Last 24 Hour Vital Signs Date Time Temp Pulse Resp B/P (MAP) Pulse Ox O2 Delivery O2 Flow Rate FiO2 05/01/20 08:55 97.5 05/01/20 08:00 97.9 80 18 116/67 (83) 98 05/01/20 04:00 97.5 77 18 117/79 (92) 95 05/01/20 00:00 98.2 68 16 101/64 (76) 94 04/30/20 21:00 Room Air 04/30/20 20:00 98.3 83 16 114/72 (86) 94 04/30/20 16:00 98.2 68 17 122/63 (82) 99 04/30/20 12:00 98.4 70 18 116/65 (82) 100 04/30/20 11:36 69 18 121/65 100 Height (Feet): 5 Height (Inches): 5.00 Weight (Pounds): 160 Microbiology Date/Time Source Procedure Growth Status 04/29/20 09:15 Nasopharynx Coronavirus COVID-19 PCR (PATIENCE) - Final Complete Laboratory Tests Test 05/01/20 04:35 White Blood Count 9.0 K/UL (4.8-10.8) # Red Blood Count 4.39 M/UL (4.20-5.40) Hemoglobin 13.1 G/DL (12.0-16.0) Hematocrit 37.3 % (37.0-47.0) Mean Corpuscular Volume 85 FL (80-99) Mean Corpuscular Hemoglobin 29.9 PG (27.0-31.0) Mean Corpuscular Hemoglobin Concent 35.2 G/DL (32.0-36.0) Red Cell Distribution Width 13.0 % (11.6-14.8) Platelet Count 333 K/UL (150-450) Mean Platelet Volume 6.2 FL (6.5-10.1) L Neutrophils (%) (Auto) 58.4 % (45.0-75.0) Lymphocytes (%) (Auto) 31.7 % (20.0-45.0) Monocytes (%) (Auto) 7.1 % (1.0-10.0) Eosinophils (%) (Auto) 2.1 % (0.0-3.0) Basophils (%) (Auto) 0.7 % (0.0-2.0) Sodium Level 140 MMOL/L (136-145) Potassium Level 3.4 MMOL/L (3.5-5.1) L Chloride Level 105 MMOL/L (98-107) Carbon Dioxide Level 29 MMOL/L (21-32) Anion Gap 6 mmol/L (5-15) Blood Urea Nitrogen 5 mg/dL (7-18) L Creatinine 0.5 MG/DL (0.55-1.30) L Estimat Glomerular Filtration Rate > 60 mL/min (>60) Glucose Level 89 MG/DL (74-106) Calcium Level 8.6 MG/DL (8.5-10.1) Current Medications Medications (Trade) Dose Ordered Sig/Nandini Route PRN Reason Start Time Stop Time Status Last Admin Dose Admin Acetaminophen (Tylenol) 650 mg Q6H PRN ORAL Pain Scale (3-5) 04/29/20 15:15 05/29/20 15:14 05/01/20 08:25 Acetaminophen (Tylenol) 650 mg Q6H PRN ORAL Temp >100.5 04/29/20 15:15 05/29/20 15:14 Albuterol/ Ipratropium (Combivent Respimat) 1 puff Q6H PRN INH Shortness of Breath 04/29/20 15:30 05/29/20 15:29 Dextrose/Sodium Chloride 1,000 ml @ 60 mls/hr [id number] IV 04/29/20 15:15 05/29/20 15:14 05/01/20 01:54 Heparin Sodium (Porcine) (Heparin 5000 units/ml) 5,000 units EVERY 12 HOURS SUBQ 04/29/20 21:00 06/13/20 20:59 04/30/20 09:33 Metoclopramide HCl (Reglan) 10 mg Q6H PRN IVP Nausea & Vomiting 04/30/20 10:00 05/30/20 09:59 Mirtazapine (Remeron) 15 mg BEDTIME ORAL 04/29/20 21:00 07/28/20 20:59 04/30/20 22:21 Morphine Sulfate (Morphine Sulfate) 2 mg Q4H PRN IVP Severe Pain (Pain Scale 7-10) 04/29/20 15:15 05/06/20 15:14 Ondansetron HCl (Zofran) 4 mg Q4H PRN IVP Nausea & Vomiting 04/29/20 15:15 05/29/20 15:14 04/30/20 09:33 Jerzy Yousif MD May 01, 2020 11:25
--- NOTE | 2020-05-01 11:41 | Pulmonology Progress Note ---
Subjective ROS Limited/Unobtainable: No Constitutional: Denies: fever, chills HEENT: Repors: no symptoms Respiratory: Reports: dry cough; Denies: shortness of breath, wheezing Cardiovascular: Reports: no symptoms Gastrointestinal/Abdominal: Denies: nausea, vomiting Genitourinary: Reports: no symptoms Allergies: Coded Allergies: No Known Allergies (Unverified , 04/27/20) All Systems: reviewed and negative except above Subjective pt is anxious about her intractable vomiting and covid-19 status. pt reports her family members are sick with COVID-19. Objective Last 24 Hour Vital Signs Date Time Temp Pulse Resp B/P (MAP) Pulse Ox O2 Delivery O2 Flow Rate FiO2 05/01/20 08:55 97.5 05/01/20 08:00 97.9 80 18 116/67 (83) 98 05/01/20 04:00 97.5 77 18 117/79 (92) 95 05/01/20 00:00 98.2 68 16 101/64 (76) 94 04/30/20 21:00 Room Air 04/30/20 20:00 98.3 83 16 114/72 (86) 94 04/30/20 16:00 98.2 68 17 122/63 (82) 99 04/30/20 12:00 98.4 70 18 116/65 (82) 100 Intake and Output 04/30/20 05/01/20 19:00 07:00 Intake Total 310 ml 1020 ml Balance 310 ml 1020 ml Intake IV Total 60 ml 660 ml Other 250 ml 360 ml # Voids 3 3 # Bowel Movements 2 Objective 05/01/2020 saturating well on RA; pt subjectively feels better 04/30/2020 saturating well on RA; s/p Ativan; NAD General Appearance: WD/WN, no acute distress HEENT: normocephalic, atraumatic Respiratory: chest wall non-tender, lungs clear, normal breath sounds Cardiovascular: normal rate, regular rhythm, no gallop/murmur, no JVD Abdomen: normal bowel sounds, soft, non tender Skin: no rash Neurologic: alert, oriented x 3 Microbiology Date/Time Source Procedure Growth Status 04/29/20 09:15 Nasopharynx Coronavirus COVID-19 PCR (PATIENCE) - Final Complete Laboratory Tests 05/01/20 04:35: White Blood Count 9.0#, Red Blood Count 4.39, Hemoglobin 13.1, Hematocrit 37.3, Mean Corpuscular Volume 85, Mean Corpuscular Hemoglobin 29.9, Mean Corpuscular Hemoglobin Concent 35.2, Red Cell Distribution Width 13.0, Platelet Count 333, Mean Platelet Volume 6.2L, Neutrophils (%) (Auto) 58.4, Lymphocytes (%) (Auto) 31.7, Monocytes (%) (Auto) 7.1, Eosinophils (%) (Auto) 2.1, Basophils (%) (Auto) 0.7, Sodium Level 140, Potassium Level 3.4L, Chloride Level 105, Carbon Dioxide Level 29, Anion Gap 6, Blood Urea Nitrogen 5L, Creatinine 0.5L, Estimat Glomerular Filtration Rate > 60, Glucose Level 89, Calcium Level 8.6 Current Medications Medications (Trade) Dose Ordered Sig/Nandini Route PRN Reason Start Time Stop Time Status Last Admin Dose Admin Acetaminophen (Tylenol) 650 mg Q6H PRN ORAL Pain Scale (3-5) 04/29/20 15:15 05/29/20 15:14 05/01/20 08:25 Acetaminophen (Tylenol) 650 mg Q6H PRN ORAL Temp >100.5 04/29/20 15:15 05/29/20 15:14 Albuterol/ Ipratropium (Combivent Respimat) 1 puff Q6H PRN INH Shortness of Breath 04/29/20 15:30 05/29/20 15:29 Dextrose/Sodium Chloride 1,000 ml @ 60 mls/hr [id number] IV 04/29/20 15:15 05/29/20 15:14 05/01/20 01:54 Heparin Sodium (Porcine) (Heparin 5000 units/ml) 5,000 units EVERY 12 HOURS SUBQ 04/29/20 21:00 06/13/20 20:59 04/30/20 09:33 Metoclopramide HCl (Reglan) 10 mg Q6H PRN IVP Nausea & Vomiting 04/30/20 10:00 05/30/20 09:59 Mirtazapine (Remeron) 15 mg BEDTIME ORAL 04/29/20 21:00 07/28/20 20:59 04/30/20 22:21 Morphine Sulfate (Morphine Sulfate) 2 mg Q4H PRN IVP Severe Pain (Pain Scale 7-10) 04/29/20 15:15 05/06/20 15:14 Ondansetron HCl (Zofran) 4 mg Q4H PRN IVP Nausea & Vomiting 04/29/20 15:15 05/29/20 15:14 04/30/20 09:33 Assessment/Plan Assessment/Plan 1. COVID-19 pneumonia. - pt on room air with O2 saturating well. - Chest x-ray, no signs of pneumonia. - Continue fluids. - Continue isolation. - Continue off antibiotics. - 04/29/2020 COVID-19 test result pending 2. History of anxiety. - Ativan given per Dr. Felton 3. Nausea/vomiting - Vomiting improved per patient - on Zofran and Reglan per general MD dc planning Stable from pulmonary point of view for discharge The care of this patient was discussed with my supervising physician Time spent for this encounter was approximately 31 minutes Jd Radford May 01, 2020 11:41
[2020-05-01 11:45] VITALS: BP 113/71
--- NOTE | 2020-05-01 11:54 | General Progress Note ---
Subjective ROS Limited/Unobtainable: Yes Allergies: Coded Allergies: No Known Allergies (Unverified , 04/27/20) Objective Last 24 Hour Vital Signs Date Time Temp Pulse Resp B/P (MAP) Pulse Ox O2 Delivery O2 Flow Rate FiO2 05/01/20 11:45 98.4 86 18 113/71 (85) 98 05/01/20 08:55 97.5 05/01/20 08:00 97.9 80 18 116/67 (83) 98 05/01/20 04:00 97.5 77 18 117/79 (92) 95 05/01/20 00:00 98.2 68 16 101/64 (76) 94 04/30/20 21:00 Room Air 04/30/20 20:00 98.3 83 16 114/72 (86) 94 04/30/20 16:00 98.2 68 17 122/63 (82) 99 04/30/20 12:00 98.4 70 18 116/65 (82) 100 Intake and Output 04/30/20 05/01/20 19:00 07:00 Intake Total 310 ml 1020 ml Balance 310 ml 1020 ml Intake IV Total 60 ml 660 ml Other 250 ml 360 ml # Voids 3 3 # Bowel Movements 2 Laboratory Tests 05/01/20 04:35: White Blood Count 9.0#, Red Blood Count 4.39, Hemoglobin 13.1, Hematocrit 37.3, Mean Corpuscular Volume 85, Mean Corpuscular Hemoglobin 29.9, Mean Corpuscular Hemoglobin Concent 35.2, Red Cell Distribution Width 13.0, Platelet Count 333, Mean Platelet Volume 6.2L, Neutrophils (%) (Auto) 58.4, Lymphocytes (%) (Auto) 31.7, Monocytes (%) (Auto) 7.1, Eosinophils (%) (Auto) 2.1, Basophils (%) (Auto) 0.7, Sodium Level 140, Potassium Level 3.4L, Chloride Level 105, Carbon Dioxide Level 29, Anion Gap 6, Blood Urea Nitrogen 5L, Creatinine 0.5L, Estimat Glomerular Filtration Rate > 60, Glucose Level 89, Calcium Level 8.6 Height (Feet): 5 Height (Inches): 5.00 Weight (Pounds): 160 General Appearance: no apparent distress EENT: normal ENT inspection Neck: supple Cardiovascular: normal rate Respiratory/Chest: decreased breath sounds Abdomen: normal bowel sounds, non tender, soft Extremities: non-tender Assessment/Plan Problem List: (1) Anxiety ICD Codes: F41.9 - Anxiety disorder, unspecified SNOMED: 24039998 (2) Intractable vomiting ICD Codes: R11.10 - Vomiting, unspecified SNOMED: 102824649 (3) COVID-19 ICD Codes: U07.1 - COVID-19 SNOMED: 339675296 Status: stable, progressing Assessment/Plan: on zofran reglan on diet Tesfaye Joy MD May 01, 2020 11:53
--- NOTE | 2020-05-01 20:04 | Psychiatric Progress Note ---
Psychiatry Progress Note Psychiatry Progress Note Allergies: Coded Allergies: No Known Allergies (Unverified , 04/27/20) Objective Data Height (Feet): 5 Height (Inches): 5.00 Weight (Pounds): 160 General Appearance: no apparent distress Assessment/Plan Status: stable, progressing Shannan Felton MD May 01, 2020 20:04
--- NOTE | 2020-05-02 00:15 | Consultation ---
DATE OF CONSULTATION: 05/01/2020 HISTORY OF PRESENT ILLNESS: The patient is a 30-year-old female with a history of unknown psychiatric history, who has been admitted to the hospital due to COVID infection. The patient looks serious and anxious and is afraid that she may from the COVID. The patient has at baseline anxiety. PAST PSYCHIATRIC HISTORY: Anxiety, depression. No psychotropic medication currently. PAST MEDICAL HISTORY: Nonsignificant. ALLERGIES: No known drug allergies. SUBSTANCE ABUSE HISTORY: No known illicit drug use or alcohol. Toxicology is negative for any drugs. MENTAL STATUS EXAMINATION: The patient is alert, oriented times self, place, situation. Mood is anxious. Affect is blunted, congruent with mood. Thought process linear and goal oriented. Thought content, no suicidal or homicidal ideation. Cognition is intact. Insight and judgment is fair. ASSESSMENT: [place] I Anxiety disorder. [place] II Deferred. [place] III COVID-19. [place] IV Low. [place] V 50 PLAN: 1. We will start her on Lexapro. 2. Ativan p.r.n. 3. Provide the patient with reality orientation and supportive therapy. Shannan Felton M.D. DR: AJ JOB#: [id number] CC:
== END 2020-05-01 13:55 | disposition home or self-care (01) | DRG 137 ==
LOC: EMR 07:50 → 4E 09:08 → EDBEDREQ 12:14 → 4E 15:47
DX: U07.1 COVID-19 (principal); F41.9 Anxiety disorder, unspecified; R11.10 Vomiting, unspecified; J12.89 Other viral pneumonia
CPT/HCPCS: 36415; 71045; 80048; 80053; 80307; 81003; 81025; 82550; 82553; 83605; 85025; 96361; 96374; 96375; 99285; J2405; J7030; J8499